=== PATIENT | male | born 1980 | race Native Hawaiian/Other Pacific Islander ===

== ENCOUNTER → 2017-06-15 | Emergency (ER) | payer OTHER ==
[~2017-06-15] VITALS: Ht 157.4 cm; Wt 49.9 kg
[~2017-06-15] MED LIST: CYCLOBENZAPRINE10 MG PO; FLOMAX0.4 MG PO; MEDROL DOSEPAK4 MG PO; MOTRIN800 MG PO; Motrin,Rufen800 MG PO; VICODIN 500 MG-1 TAB PO
== END ==
LOC: ED 22:41
DX: S70.01XA Contusion of right hip, initial encounter (principal); S00.83XA Contusion of other part of head, initial encounter; V80.010A Animal-rider injured by fall from or being thrown from horse in noncollision accident, initial encounter; Y93.52 Activity, horseback riding; Y92.89 Other specified places as the place of occurrence of the external cause; Y99.8 Other external cause status

== ENCOUNTER 2017-06-18 08:05 | Emergency (ER) | payer OTHER ==
[~2017-06-18] VITALS: Ht 157.4 cm; Wt 54.4 kg
[~2017-06-18 08:05] MED LIST changes: -CYCLOBENZAPRINE10 MG PO
[2017-06-18] MEDS ORDERED: CYCLOBENZAPRINE10 MG PO (08:35)
== END 2017-06-18 08:54 | disposition home or self-care (01) ==
LOC: ED 08:05
DX: S20.211D Contusion of right front wall of thorax, subsequent encounter (principal); R07.81 Pleurodynia; X58.XXXD Exposure to other specified factors, subsequent encounter

== ENCOUNTER 2017-06-29 22:20 | Emergency (ER) | payer OTHER ==
[~2017-06-29] VITALS: Ht 165.1 cm; Wt 49.9 kg
[~2017-06-29 22:20] MED LIST changes: +CYCLOBENZAPRINE10 MG PO
[2017-06-29 22:44] LABS: BASO % 0.2 % (0.0-1.0); EOS % 0.2 % (1.0-4.0); HEMATOCRIT 40.8 % (42.0-52.0); HEMOGLOBIN 13.6 g/dl (14.0-18.0); LYMPH # 1.1 10*3/uL (1.3-4.4); LYMPH % 8.4 % (27.0-41.0); MEAN CELL VOLUME 90.1 fl (80.0-94.0); MEAN CORPUSCULAR HGB CONC 33.3 g/dl (33.0-37.0); MONO # 0.6 10*3/uL (0.1-1.0); MONO % 4.3 % (3.0-9.0); NEUT % 85.3 % (47.0-73.0); PLATELET COUNT AUTOMATED 246 10*3/uL (130-400); RED BLOOD COUNT 4.53 10*6/uL (4.50-5.90); RED CELL DISTRI WIDTH 13.6 % (0-14.5); WHITE BLOOD COUNT 12.9 10*3/uL (4.8-10.8)
[2017-06-29 23:08] LABS: ALBUMIN 3.6 gm/dl (3.1-4.5); ALKALINE PHOSPHATASE 89 U/L (45-117); BUN 19 mg/dl (7-24); CHLORIDE 107 mmol/L (98-107); CREATININE 1.07 mg/dL (0.70-1.30); POTASSIUM 3.9 mmol/L (3.5-5.1); SGOT/AST 37 IU/L (3-35); SGPT/ALT 32 U/L (12-78); SODIUM 139 mmol/L (136-145); TOTAL PROTEIN 7.9 gm/dL (6.4-8.2)
== END 2017-06-30 00:10 | disposition short-term general hospital (02) ==
LOC: ED 22:20
PROVIDERS: Emergency Medicine
DX: S72.302A Unspecified fracture of shaft of left femur, initial encounter for closed fracture (principal); V80.010A Animal-rider injured by fall from or being thrown from horse in noncollision accident, initial encounter; Y93.89 Activity, other specified; Y92.89 Other specified places as the place of occurrence of the external cause; Y99.8 Other external cause status